=== PATIENT | male | born 1970 | race Caucasian/White ===

== ENCOUNTER 2021-01-17 08:14 | Emergency (ER) | payer OTHER ==
[~2021-01-17] VITALS: Ht 175.3 cm; Wt 101.6 kg
[~2021-01-17 08:14] MED LIST: ACETAMINOPHEN-H1 TA1 PO; AUGMENTIN 875-1 EACH PO; MOT600 PO; MUPIROCIN1 GM TOP
[2021-01-17 08:36] VITALS: Ht 175.3 cm; Wt 101.6 kg
[2021-01-17 09:38] VITALS: BP 154/88
== END 2021-01-17 09:38 | disposition home or self-care (01) ==
LOC: ED 08:14
DX: S62.633D Displaced fracture of distal phalanx of left middle finger, subsequent encounter for fracture with routine healing (principal); X58.XXXD Exposure to other specified factors, subsequent encounter
CPT/HCPCS: A4570